=== PATIENT | female | born 1935 | race Caucasian/White ===

== ENCOUNTER 2018-04-17 12:01 | Outpatient (CLI) | payer MEDICARE, BC ==
--- NOTE | 2018-04-17 13:12 | RAD ---
LUMBAR SPINE THREE VIEWS: HISTORY: An 83-year-old female with a history of lumbar spondylosis. COMPARISON: 05/09/2017 FINDINGS: Standing flexion, extension, and neutral lateral views of the lumbar spine are performed. There is e xtensive multilevel disk osteophytosis and facet arthrosis. There is evidence of some dextroscoliosi s. There is some minimal anterolisthesis of L4 on L5, although this does not appear to be significan tly changed between flexion and extension. No evidence for acute fracture. IMPRESSION: Extensive spondylosis with some dextroscoliosis and mild anterolisthesis of L4 on L5 without signific ant abnormal translation between flexion and extension. POS: [facility]
== END 2018-04-17 12:02 | disposition home or self-care (01) ==
LOC: RAD 12:01
PROVIDERS: ATTEND Nurse Practitioner Family
DX: M47.896 Other spondylosis, lumbar region (principal); M43.16 Spondylolisthesis, lumbar region; M41.9 Scoliosis, unspecified
CPT/HCPCS: 72100

== ENCOUNTER 2018-06-28 06:34 | Emergency (ER) | payer BC, MEDICARE ==
[2018-06-28 07:09] LABS: #Basophils 0.1 thou/uL (0.0-0.2); #Lymphocytes 2.9 thou/uL (1.20-3.40); #Monocytes 0.8 thou/uL (0.11-0.59); #Neutrophils 6.6 thou/uL (1.40-6.50); %Basophils 1.4 % (0.0-1.0); %Eosinophils 0.1 % (0.0-10.0); %Lymphocytes 27.6 % (21.0-51.0); %Monocytes 7.4 % (0.0-10.0); %Neutrophils 63.6 % (42.0-75.0); Hemoglobin 15.7 g/dL (12.0-16.0); Mean Corpuscular HGB CONC 31.9 g/dL (32.0-36.0); Mean Corpuscular Hemoglobin 30.2 pg (27.0-31.0); Mean Corpuscular Volume 94.7 fL (78.0-98.0); Platelet Count 484 thou/uL (130-400); Red Blood Cell (RBC) Count 5.18 mill/uL (4.20-5.40); White Blood Cell (WBC) Count 10.4 thou/uL (4.8-10.8)
[2018-06-28 07:29] LABS: Anion Gap 16 mmol/L (10-20); BUN (Urea Nitrogen) 15 mg/dL (9.8-20.1); Calc. Creatinine Clearance 0 mL/min (70-130); Carbon Dioxide 24 mmol/L (23-31); Chloride 105 mmol/L (98-107); Estimated GFR-MDRD 50; Glucose 106 mg/dL (83-110); Potassium 3.8 mmol/L (3.5-5.1); Sodium 141 mmol/L (136-145)
--- NOTE | 2018-06-28 07:36 | CT ---
CT HEAD NONCONTRAST: HISTORY: Altered mental status. Difficulty speaking. COMPARISON: 06/05/17. FINDINGS: There is no evidence of acute intracranial hemorrhage or infarct. 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 Visualized paranasal sinuses remain well aerated. IMPRESSION: No acute intracranial abnormalities are demonstrated. POS: [facility]
[2018-06-28] MEDS ORDERED: cloNIDine 0.1 MG TAB ONE (07:44)
[2018-06-28 09:19] LABS: Bilirubin Negative (Negative); Blood, Urine Negative (Negative); Clarity CLEAR (Clear); Glucose, Urine (Dipstick) Negative (Negative); Leukocyte Negative (Negative); Nitrite Negative (Negative); Protein, Urine (Dipstick) Trace mg/dL (Neg-Trace); Specific Gravity, Urine 1.017 (1.002-1.036); Urobilinogen 0.2 mg/dL (0.2-1.0)
== END 2018-06-28 10:04 | disposition home or self-care (01) ==
LOC: ERS 06:34
DX: R47.81 Slurred speech (principal); T42.8X5A Adverse effect of antiparkinsonism drugs and other central muscle-tone depressants, initial encounter; Z79.82 Long term (current) use of aspirin; Z79.899 Other long term (current) drug therapy
CPT/HCPCS: 36415; 51701; 70450; 80048; 81003; 85025; A4353

== ENCOUNTER 2018-09-02 14:32 | Outpatient (CLI) | payer MEDICARE, BC ==
--- NOTE | 2018-09-02 20:09 | MRI ---
MRI OF LUMBAR SPINE WITHOUT CONTRAST 09/02/18 COMPARISON: None. HISTORY: Chronic back pain. TECHNIQUE: Multiplanar and multisequence MR images were obtained of the lumbar spine without contrast. FINDINGS: Generalized disc desiccation is seen. The vertebral bodies demonstrate normal height and alignment wi thout fracture or subluxation. The conus medullaris terminates normally at L1. The prevertebral and p araspinal soft tissues are unremarkable. T12-L1: A small disc osteophyte complex is seen. No posterior facet arthrosis. Mild central canal osiris nosis. No neural foraminal stenosis. L1-2: A small disc osteophyte complex is seen. No posterior facet arthrosis. Mild central canal steno sis. No neural foraminal stenosis. L2-3: A small generalized concentric disc bulge is seen. No posterior facet arthrosis. Mild central c anal stenosis. Mild bilateral neural foraminal stenosis, left greater than right. L3-4: A small generalized concentric disc bulge is seen. Mild to moderate bilateral posterior facet a rthrosis. Mild central canal stenosis. Moderate left and mild right neural foraminal stenosis. L4-5: A moderate generalized concentric disc bulge is seen. severe bilateral posterior facet arthrosi s. Moderate to severe central canal stenosis. Moderate bilateral neural foraminal stenosis, right gre ater than left. L5-S1: A moderate disc osteophyte complex is seen. Moderate bilateral posterior facet arthrosis. Mode rate central canal stenosis. Moderate bilateral neural foraminal stenosis, right great than left. IMPRESSION: Degenerative changes of the lumbar spine as above. POS: [facility]
== END 2018-09-02 14:33 | disposition home or self-care (01) ==
LOC: SCSMRI 14:32
PROVIDERS: ATTEND Nurse Practitioner Family
DX: M47.816 Spondylosis without myelopathy or radiculopathy, lumbar region (principal)
CPT/HCPCS: 72148

== ENCOUNTER 2019-04-09 10:44 | Emergency (ER) | payer MEDICARE, BC ==
--- NOTE | 2019-04-09 11:25 | CT ---
BRAIN CT WITHOUT IV CONTRAST: Date: 04/09/19 HISTORY: Altered mental status. COMPARISON: 06/28/18. FINDINGS: There is some stable asymmetric fullness of the CSF space in the right sylvian fissure when compared to the left. No focal mass effect or midline shift. 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 No mass or bleed, or othe r significant new process. POS: C
--- NOTE | 2019-04-09 11:29 | RAD ---
PORTABLE CHEST: Date: 04/09/19 HISTORY: Syncope. Confusion. COMPARISON: None. FINDINGS: Heart size is enlarged. There are atherosclerotic changes of the aorta. Lungs are clear of infiltrate s. No signs of failure. IMPRESSION: Cardiomegaly. POS: [facility]
[2019-04-09 11:53] LABS: Hemoglobin 13.6 g/dL (12.0-16.0); Mean Corpuscular HGB CONC 31.6 g/dL (32.0-36.0); Mean Corpuscular Hemoglobin 28.7 pg (27.0-31.0); Mean Corpuscular Volume 90.9 fL (78.0-98.0); Mean Platelet Volume 8.2 fL (7.4-10.4); Platelet Count 251 thou/uL (130-400); RBC Distribution Width 12.4 % (11.5-14.5); Red Blood Cell (RBC) Count 4.72 mill/uL (4.20-5.40); White Blood Cell (WBC) Count 9.9 thou/uL (4.8-10.8)
[2019-04-09 12:00] LABS: ALT (SGPT) Less than 7 U/L (8-55); AST (SGOT) 9 U/L (5-34); Albumin 4.1 g/dL (3.4-4.8); Alkaline Phosphatase 72 U/L (40-150); Anion Gap 12 mmol/L (10-20); BUN (Urea Nitrogen) 16 mg/dL (9.8-20.1); Bilirubin, Total 0.4 mg/dL (0.2-1.2); CK (CPK) 38 U/L (29-168); Calc. Creatinine Clearance 0 mL/min (70-130); Calcium 9.2 mg/dL (7.8-10.44); Carbon Dioxide 24 mmol/L (23-31); Chloride 106 mmol/L (98-107); Estimated GFR-MDRD 52; Globulin 2.6 g/dL (2.4-3.5); Glucose 98 mg/dL (83-110); Lipase 14 U/L (8-78); Potassium 4.4 mmol/L (3.5-5.1); Protein, Total 6.7 g/dL (6.0-8.3); Sodium 138 mmol/L (136-145)
[2019-04-09 12:04] LABS: Band 1 % (5-11); Eosinophils 1 % (0-10); Lymphocytes 28 % (21-51); MDiff Complete? YES; Monocytes 3 % (0-10); Neutrophil 67 % (42-75); RBC Morphology Normal
[2019-04-09 12:06] LABS: Bacteria/HPF None Seen HPF (None Seen); Bilirubin Negative (Negative); Blood, Urine Negative (Negative); Clarity Clear (Clear); Glucose, Urine (Dipstick) Normal (Negative); Leukocyte Negative Leu/uL (Negative); Nitrite Negative (Negative); Protein, Urine (Dipstick) 30 mg/dL (Neg-Trace); RBC/HPF 0-3 HPF (0-3); Squamous Epithelial None Seen HPF (0-3); Urobilinogen Normal mg/dL (Less than 2); WBC/HPF 0-3 HPF (0-3)
--- NOTE | 2019-04-11 16:21 | EKG ---
Test Reason : Blood Pressure : / mmHG Vent. Rate : 064 BPM Atrial Rate : 064 BPM P-R Int : 202 ms QRS Dur : 094 ms QT Int : 408 ms P-R-T Axes : 038 033 -13 degrees QTc Int : 420 ms Normal sinus rhythm Low voltage QRS Borderline ECG Confirmed by CATRACHITO MCELROY, JJ ([id number]), offline editor GELY PADILLA ([id number]) on 04/11/2019 4:21:31 PM Referred By: Confirmed By:JJ WINSTON MD
== END 2019-04-09 15:08 | disposition home or self-care (01) ==
LOC: ERS 10:44
DX: G20 Parkinson's disease (principal)
CPT/HCPCS: 36415; 51701; 70450; 71045; 80053; 81003; 81015; 82550; 83690; 83880; 84484; 85025; 93005; 96360; A4353